=== PATIENT | male | born 1985 | race Caucasian/White ===

== ENCOUNTER 2019-02-28 21:57 | Emergency (ER) | payer SELFPAY ==
[2019-02-28 22:15] VITALS: BP 167/90
--- NOTE | 2019-03-01 10:42 | EKG REPORT ---
SEVERITY:- BORDERLINE ECG - SINUS TACHYCARDIA BORDERLINE INFERIOR Q WAVES : Confirmed by: Edgar Hardy MD 01-Mar-2019 10:41:27
== END 2019-02-28 22:58 | disposition left against medical advice (07) ==
LOC: ER 21:57
DX: Z53.21 Procedure and treatment not carried out due to patient leaving prior to being seen by health care provider (principal); R07.9 Chest pain, unspecified
CPT/HCPCS: 93005; 93010